=== PATIENT | female | born 1980 | race Two or more races ===

== ENCOUNTER 2021-04-07 13:49 | Outpatient (CLI) | payer OTHER ==
[~2021-04-07 13:49] MED LIST: TRAMADOL HCL-AP1 TAB PO
== END 2021-04-07 14:02 | disposition home or self-care (01) ==
LOC: MAMO-SONO 13:49
PROVIDERS: ATTEND Obstetrics & Gynecology
DX: N60.09 Solitary cyst of unspecified breast (principal); Z12.31 Encounter for screening mammogram for malignant neoplasm of breast; N92.0 Excessive and frequent menstruation with regular cycle

== ENCOUNTER 2021-05-06 09:30 | Inpatient (IN) | payer OTHER ==
[~2021-05-06] VITALS: Ht 160 cm; Wt 71.7 kg
[2021-05-06] MEDS ORDERED: CANDESARTAN-HC1 EAC1 PO (11:45)
[2021-05-11] MEDS ORDERED: CETIRIZINE HCL10 MG (08:02)
== END 2021-05-14 10:41 | disposition home or self-care (01) | DRG 743 ==
LOC: O/R 05-11 05:57 → SURH 05-11 07:00 → OB/GYN 05-11 13:21
PROVIDERS: ADMIT Obstetrics & Gynecology; ATTEND Obstetrics & Gynecology
PROC: 0UT70ZZ Resection of Bilateral Fallopian Tubes, Open Approach (ICD-10-PCS; 2021-05-11)
PROC: 0US20ZZ Reposition Bilateral Ovaries, Open Approach (ICD-10-PCS; 2021-05-11)
PROC: 0UT90ZZ Resection of Uterus, Open Approach (ICD-10-PCS; principal; 2021-05-11 07:00)
DX: D25.1 Intramural leiomyoma of uterus (principal); D25.2 Subserosal leiomyoma of uterus; N72 Inflammatory disease of cervix uteri; N80.0 Endometriosis of uterus; N83.8 Other noninflammatory disorders of ovary, fallopian tube and broad ligament; I10 Essential (primary) hypertension; N92.1 Excessive and frequent menstruation with irregular cycle; Z20.822 Contact with and (suspected) exposure to COVID-19

== ENCOUNTER 2025-01-29 07:34 | Outpatient (CLI) | payer OTHER ==
[~2025-01-29 07:34] MED LIST changes: +CANDESARTAN-HC1 EAC1 PO; +CETIRIZINE HCL10 MG
== END 2025-01-29 07:37 | disposition home or self-care (01) ==
LOC: MAMO-SONO 07:34
DX: N64.4 Mastodynia (principal); Z12.39 Encounter for other screening for malignant neoplasm of breast

== ENCOUNTER 2025-05-23 16:55 | Emergency (ER) | payer OTHER ==
[~2025-05-23] VITALS: Ht 157.5 cm; Wt 72.6 kg
[2025-05-23 17:45] VITALS: BP 115/82; O2SAT 99
[2025-05-23] MEDS ORDERED: ATACAND HCT 321 EACH PO (17:45)
[2025-05-23] MEDS ORDERED: KETOROLAC TROMETHAMINE 30 MG VIAL IM ONE (18:15)
[2025-05-23] MEDS ORDERED: CEFTRIAXONE SODIUM 1,000 MG VIAL IM ONE (18:15)
[2025-05-23] MEDS ORDERED: CEFTRIAXONE SODIUM 1,000 MG VIAL ONE (18:16)
[2025-05-23] MEDS ORDERED: KETOROLAC TROMETHAMINE 30 MG VIAL ONE (18:16)
[2025-05-23] MEDS ORDERED: CIPROFLOX-DEXA7.5 ML OT (18:31)
[2025-05-23] MEDS ORDERED: AMOX-CLAV 875-1 EAC1 PO (18:31)
== END 2025-05-23 18:34 | disposition home or self-care (01) ==
LOC: ER 17:03
DX: H66.91 Otitis media, unspecified, right ear (principal); H92.01 Otalgia, right ear; I10 Essential (primary) hypertension